=== PATIENT | female | born 1950 | race Caucasian/White ===

== ENCOUNTER 2019-04-06 18:10 | Inpatient (IN) | payer MEDICARE, MEDICAID ==
[~2019-04-06] VITALS: Ht 152.4 cm; Wt 63.5 kg
[~2019-04-06 18:10] MED LIST: ALPR0.25 PO; ANAS1TAB7 PO; ESOM40CA PO; HYDR25TA PO; LANS15CA PO; LEVO50TA8 PO; LOVA40TA73 PO; PROC10TA17 PO; SITA50TA3 PO
[2019-04-06] MEDS ORDERED: ONDANSETRON HCL 4MG/2ML INJ IV STA (19:02)
[2019-04-06] MEDS ORDERED: SODIUM CHLORIDE 0.9% 1,000 ML IV ONE (19:02)
[2019-04-06] MEDS ORDERED: MORPHINE SULFATE 4 MG/ML CPJ (NOT FOR IM USE) IV STA (19:02)
[2019-04-06 20:42] LABS: BASOPHILS % 0.4 % (0.0-2.0); EOSINOPHILS % 0.5 % (0.0-5.0); HEMATOCRIT. 39.1 % (36.0-48.0); HEMOGLOBIN. 13.4 g/dL (12.0-16.0); LYMPHOCYTES % 13.2 % (20.0-50.0); MEAN CORPUSCULAR VOLUME 84.8 fL (81.0-99.0); MEAN PLATELET VOLUME 8.7 fl (7.4-10.4); NEUTROPHILS % 79.9 % (40.0-76.0); PLATELET 181 x1000/uL (130-400); RED BLOOD CELL COUNT 4.61 mill/uL (4.2-5.4); RED CELL DISTRIBUTION WIDTH 13.5 % (11.6-14.6)
[2019-04-06 21:36] LABS: CHLORIDE 100 mEq/L (98-107)
[2019-04-06 21:43] LABS: CLARITY URINE CLEAR (CLEAR); COLOR URINE YELLOW (YELLOW); KETONES URINE TRACE (NEGATIVE); LEUKOCYTE ESTERASE URINE 2+ (NEGATIVE); NITRITE URINE NEGATIVE (NEGATIVE); OCCULT BLOOD URINE NEGATIVE (NEGATIVE); PH URINE 5.5 (4.5-8.0); PROTEIN URINE 1+ (NEGATIVE); SPECIFIC GRAVITY URINE 1.019 (1.005-1.030)
[2019-04-06] MEDS ORDERED: PIPERACILLIN/TAZOBACTAM 3.375GM/50ML PREMIX IV ONE (22:45)
[2019-04-06] MEDS ORDERED: IOHEXOL-300 100 ML BOTTLE ONE (22:57)
[2019-04-07] MEDS ORDERED: DIPHENHYDRAMINE 50MG/ML VIAL IV PRN
[2019-04-07] MEDS ORDERED: CLONIDINE 0.1MG TABLET PO PRN
[2019-04-07] MEDS ORDERED: IPRATROPIUM/ALBUTEROL 0.5-3(2.5)MG/3ML NEB HHN PRN
[2019-04-07] MEDS ORDERED: NA PHOS,M-B/NA PHOS,DI-BA ENEMA 118ML PR PRN
[2019-04-07] MEDS ORDERED: ONDANSETRON HCL 4MG/2ML INJ IV PRN
[2019-04-07] MEDS ORDERED: ACETAMINOPHEN 650MG SUPP PR PRN
[2019-04-07] MEDS ORDERED: GUAIFENESIN 200MG/10ML SUGAR FREE UDC PO PRN
[2019-04-07] MEDS ORDERED: MAGNESIUM/ALUMINUM HYDROXIDE/SIMETHICONE 30ML UDC PO PRN
[2019-04-07] MEDS ORDERED: ACETAMINOPHEN 650MG/20.3ML UDC GT PRN
[2019-04-07] MEDS ORDERED: DOCUSATE SODIUM 100MG CAPSULE PO PRN
[2019-04-07] MEDS: ACETAMINOPHEN 325MG TABLET PO PRN ×2 (01:58→10:24)
[2019-04-07 02:25] VITALS: BP 140/60
[2019-04-07] MEDS ORDERED: METRONIDAZOLE 500 MG PREMIX 100 ML IV SCH (03:00)
[2019-04-07] MEDS: SODIUM CHLORIDE 0.45% 1,000 ML IV SCH ×2 (03:10→17:55)
[2019-04-07 04:00] VITALS: BP 113/54
[2019-04-07] MEDS ORDERED: CEFTRIAXONE 1 G PREMIX 50 ML IV SCH ×2 (04:00→12:00)
[2019-04-07] MEDS: SODIUM CHLORIDE 0.9% INJ 3ML FLUSH IVF SCH ×3 (06:00→22:24)
[2019-04-07 08:00] VITALS: BP 121/68
[2019-04-07] MEDS: ENOXAPARIN 40MG/0.4ML SYR SUBCUT SCH (08:56)
[2019-04-07 09:15] LABS: BASOPHILS % 0.3 % (0.0-2.0); EOSINOPHILS % 0.6 % (0.0-5.0); HEMATOCRIT. 36.6 % (36.0-48.0); HEMOGLOBIN. 12.6 g/dL (12.0-16.0); LYMPHOCYTES % 25.7 % (20.0-50.0); MEAN CORPUSCULAR HEMOGLOBIN 29.3 pg (28.0-32.0); MEAN CORPUSCULAR VOLUME 85.1 fL (81.0-99.0); MEAN PLATELET VOLUME 8.6 fl (7.4-10.4); MONOCYTES % 6.6 % (2.0-8.0); NEUTROPHILS % 66.8 % (40.0-76.0); PLATELET 152 x1000/uL (130-400); RED BLOOD CELL COUNT 4.29 mill/uL (4.2-5.4); RED CELL DISTRIBUTION WIDTH 13.6 % (11.6-14.6)
[2019-04-07 09:16] LABS: CHLORIDE 101 mEq/L (98-107)
[2019-04-07 09:23] LABS: LDL CHOLESTEROL 67 mg/dL (5-100)
[2019-04-07 09:24] LABS: HDL CHOLESTEROL 50 mg/dL (40-59)
[2019-04-07] MEDS ORDERED: DEXTROSE 50% WATER 50ML SYRINGE IV PRN (09:45)
[2019-04-07] MEDS ORDERED: ALPRAZOLAM 0.25 MG TABLET PO PRN (09:45)
[2019-04-07] MEDS ORDERED: POTASSIUM CHLORIDE 20MEQ TABLET SR PO SCH (09:45)
[2019-04-07] MEDS: LEVOTHYROXINE SODIUM 50MCG TABLET PO SCH (10:17)
[2019-04-07] MEDS: LANSOPRAZOLE 15MG DR CAPSULE PO SCH (10:17)
[2019-04-07] MEDS: HYDROCHLOROTHIAZIDE 25MG TABLET PO SCH (10:18)
[2019-04-07 12:00] VITALS: BP 118/62
[2019-04-07] MEDS ORDERED: MORPHINE SULFATE 2 MG/ML CPJ (NOT FOR IM USE) IV PRN (12:00)
[2019-04-07] MEDS: ANASTROZOLE 1 MG TABLET PO SCH (12:02)
[2019-04-07] MEDS: INSULIN LISPRO 100 UNITS/ML SUBCUT SCH ×3 (12:50→23:14)
[2019-04-07] MEDS: BLOOD SUGAR DIAGNOSTIC STRIP TEST SCH ×3 (13:00→21:00)
[2019-04-07] MEDS: HYDROCODONE/ACETAMINOPHEN 10/325MG TABLET PO PRN (14:47)
[2019-04-07] MEDS: METRONIDAZOLE 500 MG PREMIX 100 ML IV SCH ×2 (14:48→23:16)
[2019-04-07 14:57] LABS: HEPATITIS B SURFACE ANTIGEN NEGATIVE
[2019-04-07 15:26] LABS: HEPATITIS A AB IGM NEGATIVE (NEGATIVE)
[2019-04-07 16:00] VITALS: BP 112/64
[2019-04-07 20:00] VITALS: BP 118/69
[2019-04-08] VITALS: BP 120/62
[2019-04-08] MEDS: HYDROCODONE/ACETAMINOPHEN 10/325MG TABLET PO PRN ×2 (01:34→21:54)
[2019-04-08] MEDS: SODIUM CHLORIDE 0.45% 1,000 ML IV SCH (01:34)
[2019-04-08 04:00] VITALS: BP 117/68
[2019-04-08] MEDS: CEFTRIAXONE 1 G PREMIX 50 ML IV SCH (05:14)
[2019-04-08] MEDS: BLOOD SUGAR DIAGNOSTIC STRIP TEST SCH ×4 (06:37→21:37)
[2019-04-08] MEDS: METRONIDAZOLE 500 MG PREMIX 100 ML IV SCH ×3 (06:37→21:46)
[2019-04-08] MEDS: SODIUM CHLORIDE 0.9% INJ 3ML FLUSH IVF SCH ×3 (06:38→21:46)
[2019-04-08 08:27] LABS: HEMATOCRIT 36.7 % (36.0-48.0); HEMOGLOBIN 12.7 g/dL (12.0-16.0); MEAN CORPUSCULAR HEMOGLOBIN 29.4 pg (28.0-32.0); MEAN CORPUSCULAR VOLUME 85.4 fL (81.0-99.0); PLATELET 145 x1000/uL (130-400); RED CELL DISTRIBUTION WIDTH 13.5 % (11.6-14.6)
[2019-04-08] MEDS: INSULIN LISPRO 100 UNITS/ML SUBCUT SCH ×4 (08:44→21:43)
[2019-04-08 08:46] LABS: CHLORIDE 101 mEq/L (98-107)
[2019-04-08] MEDS: LANSOPRAZOLE 15MG DR CAPSULE PO SCH (08:46)
[2019-04-08] MEDS: HYDROCHLOROTHIAZIDE 25MG TABLET PO SCH (08:46)
[2019-04-08] MEDS: LEVOTHYROXINE SODIUM 50MCG TABLET PO SCH (08:46)
[2019-04-08] MEDS: ENOXAPARIN 40MG/0.4ML SYR SUBCUT SCH (08:46)
[2019-04-08] MEDS: ANASTROZOLE 1 MG TABLET PO SCH (08:46)
[2019-04-08] MEDS ORDERED: POTASSIUM CHLORIDE 20MEQ TABLET SR PO NR (10:15)
[2019-04-08] MEDS: ACETAMINOPHEN 325MG TABLET PO PRN (14:53)
[2019-04-09 04:00] VITALS: BP 117/69
[2019-04-09] MEDS: CEFTRIAXONE 1 G PREMIX 50 ML IV SCH (04:16)
[2019-04-09] MEDS: SODIUM CHLORIDE 0.45% 1,000 ML IV SCH ×2 (04:16→21:48)
[2019-04-09] MEDS: SODIUM CHLORIDE 0.9% INJ 3ML FLUSH IVF SCH ×3 (05:20→21:49)
[2019-04-09] MEDS: METRONIDAZOLE 500 MG PREMIX 100 ML IV SCH ×3 (05:21→21:47)
[2019-04-09] MEDS: BLOOD SUGAR DIAGNOSTIC STRIP TEST SCH ×4 (06:22→21:00)
[2019-04-09] MEDS: INSULIN LISPRO 100 UNITS/ML SUBCUT SCH ×4 (07:50→21:50)
[2019-04-09 08:00] VITALS: BP 125/68
[2019-04-09 09:02] LABS: HEMATOCRIT 36.8 % (36.0-48.0); HEMOGLOBIN 12.7 g/dL (12.0-16.0); MEAN CORPUSCULAR HEMOGLOBIN 29.3 pg (28.0-32.0); MEAN CORPUSCULAR VOLUME 84.7 fL (81.0-99.0); PLATELET 153 x1000/uL (130-400); RED BLOOD CELL COUNT 4.35 mill/uL (4.2-5.4); RED CELL DISTRIBUTION WIDTH 13.7 % (11.6-14.6)
[2019-04-09] MEDS: LEVOTHYROXINE SODIUM 50MCG TABLET PO SCH (09:06)
[2019-04-09] MEDS: LANSOPRAZOLE 15MG DR CAPSULE PO SCH (09:06)
[2019-04-09] MEDS: HYDROCHLOROTHIAZIDE 25MG TABLET PO SCH (09:06)
[2019-04-09] MEDS: ANASTROZOLE 1 MG TABLET PO SCH (09:07)
[2019-04-09] MEDS: ENOXAPARIN 40MG/0.4ML SYR SUBCUT SCH (09:07)
[2019-04-09 09:09] LABS: CHLORIDE 101 mEq/L (98-107)
[2019-04-09 12:00] VITALS: BP 122/68
[2019-04-09 16:00] VITALS: BP 120/66
[2019-04-09] MEDS: HYDROCODONE/ACETAMINOPHEN 10/325MG TABLET PO PRN (22:11)
[2019-04-10] MEDS: CEFTRIAXONE 1 G PREMIX 50 ML IV SCH (06:04)
[2019-04-10] MEDS: METRONIDAZOLE 500 MG PREMIX 100 ML IV SCH (06:05)
[2019-04-10] MEDS: INSULIN LISPRO 100 UNITS/ML SUBCUT SCH ×2 (07:50→12:44)
[2019-04-10 08:00] VITALS: BP 140/111
[2019-04-10] MEDS: BLOOD SUGAR DIAGNOSTIC STRIP TEST SCH ×2 (08:08→12:44)
[2019-04-10] MEDS: HYDROCHLOROTHIAZIDE 25MG TABLET PO SCH (08:16)
[2019-04-10] MEDS: ENOXAPARIN 40MG/0.4ML SYR SUBCUT SCH (08:16)
[2019-04-10] MEDS: LEVOTHYROXINE SODIUM 50MCG TABLET PO SCH (08:16)
[2019-04-10] MEDS: ANASTROZOLE 1 MG TABLET PO SCH (08:16)
[2019-04-10] MEDS: LANSOPRAZOLE 15MG DR CAPSULE PO SCH (08:16)
[2019-04-10 12:00] VITALS: BP 152/81
[2019-04-10 13:24] VITALS: BP 152/81
[2019-04-10 13:27] VITALS: BP 152/81
== END 2019-04-10 14:00 | disposition home or self-care (01) | DRG 378 ==
LOC: ER 18:21 → 6EST 22:47 → EDBEDREQ 22:56 → EDBEDREQTM 22:56 → ENRESERV 23:08
PROVIDERS: ADMIT Family Medicine; ATTEND Family Medicine
DX: K92.2 Gastrointestinal hemorrhage, unspecified (principal); N39.0 Urinary tract infection, site not specified; K52.9 Noninfective gastroenteritis and colitis, unspecified; K40.20 Bilateral inguinal hernia, without obstruction or gangrene, not specified as recurrent; D64.9 Anemia, unspecified; E11.9 Type 2 diabetes mellitus without complications; K76.0 Fatty (change of) liver, not elsewhere classified; K59.00 Constipation, unspecified; B19.20 Unspecified viral hepatitis C without hepatic coma; E78.00 Pure hypercholesterolemia, unspecified; E86.0 Dehydration; I10 Essential (primary) hypertension; K21.9 Gastro-esophageal reflux disease without esophagitis; Z79.899 Other long term (current) drug therapy; Z85.3 Personal history of malignant neoplasm of breast
CPT/HCPCS: 36415; 74177; 80048; 80061; 80076; 81003; 82962; 83605; 85027; 86705; 86709; 86803; 87015; 87045; 87340; 87427; 87449; 93005; 96374; 99285; A6261; J0696; J1650; J1815; J2270; J2405; J2543; J3490; J7030; Q9967

== ENCOUNTER 2022-12-18 23:34 | Emergency (ER) | payer OTHER, MEDICAID ==
[~2022-12-18] VITALS: Ht 157.5 cm; Wt 55.0 kg
[~2022-12-18 23:34] MED LIST changes: +PROC-1 PO; -PROC10TA17 PO
[2022-12-19 03:39] LABS: BASOPHILS % 0.7 % (0.0-2.0); EOSINOPHILS % 0.6 % (0.0-5.0); HEMATOCRIT. 39.3 % (36.0-48.0); HEMOGLOBIN. 13.6 g/dL (12.0-16.0); LYMPHOCYTES % 18.7 % (20.0-50.0); MEAN CORPUSCULAR HEMOGLOBIN 29.3 pg (28.0-32.0); MEAN PLATELET VOLUME 8.7 fl (7.4-10.4); MONOCYTES % 4.5 % (2.0-8.0); NEUTROPHILS % 75.5 % (40.0-76.0); PLATELET 220 x1000/uL (130-400); RED BLOOD CELL COUNT 4.63 mill/uL (4.2-5.4); RED CELL DISTRIBUTION WIDTH 13.4 % (11.6-14.6)
[2022-12-19 03:48] LABS: CHLORIDE 102 mEq/L (98-107)
[2022-12-19 07:52] VITALS: BP 124/81
== END 2022-12-19 07:53 | disposition home or self-care (01) ==
LOC: ER 23:34
DX: I10 Essential (primary) hypertension (principal); R42 Dizziness and giddiness; H53.8 Other visual disturbances
CPT/HCPCS: 36415; 71045; 80053; 84484; 85025; 93005; 99285